=== PATIENT | female | born 1935 | race Caucasian/White ===

== ENCOUNTER → 2020-04-04 11:34 | Outpatient (BNVA) | payer MEDICARE, SELFPAY | PROVIDERS: Visit Provider Emergency Medicine | DX: R07.81 Pleurodynia (principal) | CPT/HCPCS: 71046 ==

== ENCOUNTER → 2022-03-17 16:36 | Outpatient (BNVA) | payer MEDICARE, SELFPAY | PROVIDERS: Visit Provider Emergency Medicine | DX: M25.552 Pain in left hip (principal) | CPT/HCPCS: 72170; 73502 ==

== ENCOUNTER → 2022-04-10 08:47 | Outpatient (BNVA) | payer MEDICARE, SELFPAY | PROVIDERS: Referring Provider Emergency Medicine; Visit Provider Student in an Organized Health Care Education/Training Program | DX: M97.02XA Periprosthetic fracture around internal prosthetic left hip joint, initial encounter (principal); W19.XXXA Unspecified fall, initial encounter; M25.552 Pain in left hip | CPT/HCPCS: 27246; 73502; 99204 ==

== ENCOUNTER → 2022-08-15 11:59 | Outpatient (BNVA) | payer BC, SELFPAY | PROVIDERS: PCP Nurse Practitioner Family; Visit Provider Nurse Practitioner Family | DX: R07.81 Pleurodynia (principal); S42.211A Unspecified displaced fracture of surgical neck of right humerus, initial encounter for closed fracture; X58.XXXA Exposure to other specified factors, initial encounter | CPT/HCPCS: 71046 ==

== ENCOUNTER → 2022-09-08 11:46 | Outpatient (BNVA) | payer MEDICARE, SELFPAY | PROVIDERS: PCP Nurse Practitioner Family; Visit Provider Family Medicine | DX: M54.6 Pain in thoracic spine (principal) | CPT/HCPCS: 72070 ==